=== PATIENT | male | born 1990 | race Caucasian/White ===

== ENCOUNTER 2017-08-23 16:53 | Emergency (ER) | payer SELFPAY, BC | END 2017-08-23 21:38 | disposition left against medical advice (07) | LOC: E/R 21:38 | DX: Z53.21 Procedure and treatment not carried out due to patient leaving prior to being seen by health care provider (principal) ==

== ENCOUNTER 2017-08-23 21:39 | Inpatient (IN) | payer OTHER, BC ==
[2017-08-24 00:27] LABS: ADD MAN DIFF? NO
[2017-08-24 00:31] LABS: WHITE BLOOD COUNT 10.3 10^3/ul (4.8-10.8)
[2017-08-24 00:31] LABS: BASOPHILS % 0.4 % (0.0-2.0); EOSINOPHILS # 0.9 10^3/ul (0.0-0.5); EOSINOPHILS % 8.3 % (0.0-7.0); HEMATOCRIT 37.2 % (42.0-52.0); HEMOGLOBIN 12.7 g/dl (14.0-18.0); LYMPHOCYTES % 19.7 % (15.0-51.0); MEAN CORPUSCULAR HEMOGLOBIN 30.2 pg (29.0-33.0); MEAN CORPUSCULAR HGB CONC 34.1 g/dl (32.0-37.0); MEAN CORPUSCULAR VOLUME 88.4 fl (82.0-101.0); MEAN PLATELET VOLUME 10.7 fl (7.4-10.4); MONOCYTE # 0.7 10^3/ul (0.3-0.9); MONOCYTES % 6.7 % (0.0-11.0); NEUTROPHIL # 6.7 10^3/ul (1.6-7.5); NEUTROPHILS % 64.7 % (39.0-77.0); PLATELET COUNT 233 10^3/UL (140-415); RED BLOOD COUNT 4.21 10^6/ul (4.70-6.10); RED CELL DISTRIBUTION WIDTH 13.2 % (11.5-14.5)
[2017-08-24 00:36] LABS: INR 0.93; PARTIAL THROMBOPLASTIN TIME 26.9 Sec (25.0-35.0); PROTIME 12.5 Sec (11.9-14.9)
[2017-08-24 00:39] LABS: ALANINE AMINOTRANSFERASE 66 IU/L (13-69); ALBUMIN 3.8 g/dl (3.3-4.9); ALBUMIN/GLOBULIN RATIO 1.22; ALKALINE PHOSPHATASE 72 IU/L (42-121); ANION GAP 14 (8-16); ASPARTATE AMINO TRANSFERASE 72 IU/L (15-46); BILIRUBIN,INDIRECT 0.1 mg/dl (0-1.1); BILIRUBIN,TOTAL 0.1 mg/dl (0.2-1.3); BLOOD UREA NITROGEN 17 mg/dl (7-20); CARBON DIOXIDE 29 mmol/L (21-31); CHLORIDE 104 mmol/L (97-110); CREATININE 0.95 mg/dl (0.61-1.24); GLUCOSE 95 mg/dl (70-220); LIPASE 121 U/L (23-300); POTASSIUM 3.7 mmol/L (3.5-5.1); SODIUM 143 mmol/L (135-144); TOTAL PROTEIN 6.9 g/dl (6.1-8.1)
[2017-08-24] MEDS: CLINDAMYCIN 900 MG/D5W (PMX) 50 ML IVPB (01:33)
[2017-08-24] MEDS ORDERED: NACL 0.9% 3 ML SYG IV (02:30)
[2017-08-24] MEDS ORDERED: ACETAMINOPHEN 325 MG TAB PO (02:30)
[2017-08-24] MEDS ORDERED: HYDROCODONE/APAP (5/325) TAB PO (02:30)
[2017-08-24] MEDS ORDERED: VANCOMYCIN IV PER PHARMACY XX (02:30)
[2017-08-24] MEDS ORDERED: ONDANSETRON 4 MG TAB PO (02:30)
[2017-08-24] MEDS: KETOROLAC 30 MG INJ IV ×2 (02:43→12:28)
[2017-08-24] MEDS: VANCOMYCIN 1 GM (PMX) 250 ML IVPB (02:44)
[2017-08-24] MEDS: DIPHENHYDRAMINE 50 MG INJ IV (02:44)
[2017-08-24] MEDS: PIPER-TAZO 3.375 GM IV (PMX) 100 ML IVPB (05:19)
[2017-08-24] MEDS: LORAZEPAM 2 MG INJ IV ×4 (05:23→21:29)
[2017-08-24 06:18] LABS: LACTIC ACID 1.1 mmol/L (0.5-2.0)
[2017-08-24] MEDS: VANCOMYCIN 1.5 GM in DEXTROSE 5% 500 ML IVPB (09:14)
[2017-08-24] MEDS: morphine 2 MG INJ IV ×3 (12:46→20:26)
[2017-08-24] MEDS: PREGABALIN 100 MG CAP PO ×2 (14:31→20:45)
[2017-08-24] MEDS: GABAPENTIN 400 MG CAP PO ×2 (14:31→20:46)
[2017-08-24] MEDS: NICOTINE (21 MG/24 HR) PATCH TRANSDERM (14:36)
[2017-08-24] MEDS: NICOTINE POLACRILEX 2 MG GUM BUCCAL (14:37)
[2017-08-24] MEDS: METHOCARBAMOL 750 MG TAB PO (14:37)
[2017-08-24] MEDS: SILVER SULFADIAZINE 1% 25 GM CR TOP (17:30)
[2017-08-24] MEDS: VANCOMYCIN 1.25 GM in SOD CHLORIDE 0.45% 250 ML IVPB (17:34)
[2017-08-24] MEDS ORDERED: METHOCARBAMOL 750 MG TAB PO (18:00)
[2017-08-25] MEDS ORDERED: morphine LIQ (10 MG/5 ML) CUP PO (20:00)
== END 2017-08-24 23:05 | disposition left against medical advice (07) | DRG 603 ==
LOC: E/R 21:39 → MS1 08-24 02:26
DX: L03.116 Cellulitis of left lower limb (principal); G89.29 Other chronic pain; S82.492D Other fracture of shaft of left fibula, subsequent encounter for closed fracture with routine healing; M54.9 Dorsalgia, unspecified; Z85.028 Personal history of other malignant neoplasm of stomach; V49.9XXD Car occupant (driver) (passenger) injured in unspecified traffic accident, subsequent encounter
CPT/HCPCS: 36415; 73610; 73630-LT; 73700; 73718; 73721; 80053; 83605; 83690; 85025; 85610; 85730; 87040; 87070; 96374; 96375; 99285-25